=== PATIENT | male | born 1990 | race Caucasian/White ===

== ENCOUNTER 2024-03-06 23:02 | Emergency (ER) | payer SELFPAY ==
[2024-03-06 23:04] VITALS: BP 136/96; PULSE 70; RESP 17; TEMP 36.9; O2SAT 95; BMI 28.9
--- NOTE | 2024-03-06 23:19 | RAD_ITS ---
INDICATION: injury EXAMINATION/TECHNIQUE: X-RAY - XR Sacrum/Coccyx Min 2 Views COMPARISON: No relevant prior comparison study available FINDINGS: SACRUM/COCCYX: No displaced fracture, destructive or sclerotic lesions. Note that overlapping bowel shadows may however obscure fine detail in the frontal view. SACRO-ILIAC JOINTS: The articular structures are unremarkable. SOFT TISSUES: No soft tissue swelling or gas. RAD/Sacrum-Coccyx min 2 Views IMPRESSION: Unremarkable sacro-coccygeal spine. Electronically Signed: Arvin Quintana MD at 0:07 EDT ,
--- NOTE | 2024-03-06 23:24 | EDS_ITS ---
HPI History of Present Illness Chief Complaint: Back Informant: patient and EMS Narrative Narrative: 33-year-old healthy male had an injury to his back about 24 hours ago. He states he and some friends were drinking, then they were jumping on a trampoline and he did a back flip. States he landed it but then his momentum carried him over and off of the trampoline landing on the ground against his low back. He then continued to roll over onto his front side without any other injury. He had some mild discomfort in his left low back, but it was not severe until later today. There is no discomfort or numbness radiating into his legs or his perineum. He has no bowel or bladder dysfunction. No weakness in his legs. He has some pins and needle sensation in his left low back where the pain is, where he has a lidocaine patch. He presents by EMS out of concern that he could be paralyzed if he did not get this addressed. He denies any other injury or pain. PFSH PFSH Medical History no medical history no medical history Home Medications ?Medication ?Instructions ?Recorded ?Last Taken ?Type naproxen 500 mg tablet 500 mg PO BID PRN #14 tabs 03/07/24 Unknown Rx Allergy/AdvReac Type Severity Reaction Status Date / Time No Known Allergies Allergy Verified 03/06/24 23:09 Family History no significant family his Surgical History (Updated 03/06/24 @ 23:20 by Lona Mercedes) Hx of umbilical hernia repair Surgical History no surgical history Social History Smoking Status: Current every day smoker tobacco type: e-cigarettes ROS ROS ED Constitutional Constitutional ED: Denies chills or fever(s) Gastrointestinal Gastrointestinal: Denies abdominal pain, constipation, fecal incontinence, nausea or vomiting Genitourinary Genitourinary ED: Reports other Details: no urinary retention ; Denies abdominal discomfort or urinary incontinence Musculoskeletal Musculoskeletal: Reports as per HPI and back pain; Denies neck pain Integumentary Denies rash or wounds Neurologic Neurologic: Denies headache(s), paresthesias or weakness EXAM Physical Exam Const Vital Signs: 03/06/24 23:04 Temperature 98.4 F Temperature Source Oral Pulse Rate 70 Respiratory Rate 17 Blood Pressure 136/96 H Blood Pressure Mean 109 Pulse Ox 95 Oxygen Delivery Method Room Air Positive well nourished and well developed General Appearance ED: well developed and NAD HEENT Negative for trauma or tenderness Eyes PERRL and EOMs intact bilaterally Neck full ROM and supple GI normal to inspection, nondistended, normoactive bowel sounds, soft to palpation and non-tender Back/Spine normal to inspection Lumbar Spine / Lower Back: ROM limited, paraspinal muscle tenderness left L2 and L3 (Mostly above pelvic brim) and straight leg raise negative bilaterally; Negative for lumbar spinal tenderness Extremity normal to inspection, full ROM and no pedal edema Neuro oriented x3 and no sensory deficits noted Sensorium / Orientation: alert Motor Exam: strength 5/5 throughout and clonus absent Deep Tendon Reflexes: Rt Patellar (L4): 2+, Lt Patellar (L4): 2+, Rt Ankle (S1): 2+ and Lt Ankle (S1): 2+ Deep Tendon Reflexes Back: Rt Patellar (L4): 2+, Lt Patellar (L4): 2+, Rt Ankle (S1): 2+ and Lt Ankle (S1): 2+ Plantar Reflex: Downgoing: bilateral Psych mental status grossly normal and thought process normal Skin no rashes or lesions noted and no wounds MDM MDM MDM Narrative Medical decision making narrative: Patient reassured he is having no symptoms of radiculopathy or myelopathy. Given the trauma and pain I obtained three-view x-ray series of the lumbar spine which are negative for acute fracture minus interpretation, and 3 view x-ray series of the sacrum and coccyx which are negative for acute fracture on my interpretation. Patient was given Toradol and Norflex for what is probably all muscular strain and contusion, he has a lidocaine patch on the area where he is hurting which may indicate some of the [id number], regardless they are not indicative of peripheral neuropathy at this time and I recommend supportive care and close outpatient follow-up as needed he is comfortable with that plan. Radiography Diagnostic Testing: Clinical Impression(s) from Imaging Studies Sacrum and Coccyx X-Ray 03/06/24 23:19 IMPRESSION: Unremarkable sacro-coccygeal spine. Electronically Signed: Arvin Quintana MD at 0:07 EDT Reading Location ID and State: [facility] / [place] Tel , Service support , Lumbar Spine X-Ray 03/06/24 23:35 IMPRESSION: No evidence of lumbar spinal fracture or spondylolisthesis. Electronically Signed: Arvin Quintana MD at 0:07 EDT , Discharge Plan Triage Chief Complaint: Back ED Provider: Nolberto Perry Dx/Rx/DC Orders Clinical Impression: Contusion of lower back and pelvis, initial encounter Instructions: ED Back Pain (Acute or Chronic) Prescriptions: New naproxen 500 mg tablet 500 mg PO BID PRN Qty: 14 0RF Primary Care Provider: Care Physician,No Primary Referrals: Doctor,Your [Non-Staff] - 1 Week if not improving Print Language: Kinyarwanda Disposition Disposition: Home, Self Care
[2024-03-06] MEDS: Ketorolac 60 MG/2 ML Vial IM (23:25)
[2024-03-06] MEDS: Orphenadrine 60 MG/2 ML Ampul IM (23:26)
--- NOTE | 2024-03-06 23:35 | RAD_ITS ---
INDICATION: injury EXAMINATION/TECHNIQUE: X-RAY - XR Spine Lumbar 2 or 3 Views COMPARISON: No relevant prior comparison study available FINDINGS: VERTEBRAE: Preserved vertebral body height. No fracture. No spondylolisthesis. Preservation of the normal lumbar lordosis. No significant facet arthropathy. DISCS: Disc spaces are maintained. INCLUDED ABDOMEN: Included bowel gas pattern is non-obstructive. RAD/Lumbar Spine 2 or 3 Views IMPRESSION: No evidence of lumbar spinal fracture or spondylolisthesis. Electronically Signed: Arvin Quintana MD at 0:07 EDT ,
[2024-03-07 00:30] VITALS: BP 124/73; PULSE 55; RESP 18; TEMP 36.8; O2SAT 98
== END 2024-03-07 00:37 | disposition home or self-care (01) ==
PROVIDERS: Emergency Provider Emergency Medicine; Visit Provider Emergency Medicine
DX: S20.229A Contusion of unspecified back wall of thorax, initial encounter (principal); F17.290 Nicotine dependence, other tobacco product, uncomplicated; X58.XXXA Exposure to other specified factors, initial encounter
CPT/HCPCS: 72100; 72220; 96372; 99282